=== PATIENT | female | born 1960 | race Caucasian/White ===

== ENCOUNTER 2017-08-02 16:12 | Outpatient (CLI) | payer MEDICARE, SELFPAY | END 2017-08-02 16:13 | disposition home or self-care (01) | LOC: BICRAD 16:12 | PROVIDERS: ATTEND Internal Medicine | DX: M54.5 Low back pain (principal); M25.551 Pain in right hip; M47.896 Other spondylosis, lumbar region | CPT/HCPCS: 72100 ==